=== PATIENT | male | born 1955 | race African-American/Black ===

== ENCOUNTER 2023-06-07 08:21 | Emergency (ER) | payer MEDICARE ==
[2023-06-07 10:56] LABS: Bilirubin Negative (Negative); Blood, Urine 2+ (Negative); CAUTI Indications for Culture Dysuria,urgency,freq; Clarity Clear (Clear); Glucose, Urine (Dipstick) Normal (Negative); Ketone, Urine Negative (Negative); Leukocyte 500 Leu/uL (Negative); Nitrite Negative (Negative); Protein, Urine (Dipstick) 20 mg/dL (Neg-Trace); RBC/HPF 21-50 HPF (0-3); Specific Gravity, Urine 1.027 (1.002-1.036); Squamous Epithelial 0-3 HPF (0-3); Urobilinogen Greater than 12 mg/dL (Less than 2); WBC/HPF Greater than 50 HPF (0-3); pH, Urine 6.5 (5.0-9.0)
[2023-06-07 10:59] LABS: Bacteria/HPF 1+ HPF (None Seen)
[2023-06-07 11:01] LABS: Urine Culture Reflex Yes Yes
[2023-06-07] MEDS ORDERED: Magnevist 469MG/ML 20 ML VIAL ONE (11:49)
== END 2023-06-07 13:54 | disposition home or self-care (01) ==
LOC: ERS 08:21
DX: N13.5 Crossing vessel and stricture of ureter without hydronephrosis (principal); N39.0 Urinary tract infection, site not specified; I10 Essential (primary) hypertension; Z79.899 Other long term (current) drug therapy
CPT/HCPCS: 72158; 74176; 81001; 87086; A9579